=== PATIENT | male | born 1955 | race Caucasian/White ===

== ENCOUNTER 2018-07-25 09:07 | Emergency (ER) | payer MEDICAID ==
[~2018-07-25] VITALS: Ht 193 cm; Wt 113.4 kg
[2018-07-25 09:07] VITALS: BP_SYST 151
--- NOTE | 2018-07-25 09:09 | NUR ---
BROUGHT BACK TO BED #6 AND TRIAGED. REPORT GIVEN TO [facility]
--- NOTE | 2018-07-25 09:27 | NUR ---
Patient is awake, alert, and oriented x4. Patient is complaining of pain in right foot foot for a couple weeks. Patient presents with sharp throbbing pain 8/10 to right foot, limited range of motion, increased pain when pointing up.
--- NOTE | 2018-07-25 10:00 | NUR ---
ER Dr. Lezama at bedside examining patient.
[2018-07-25] MEDS ORDERED: traMADol HCL HCL 50 MG TABLET (ULTRAM) PO ONE (10:45)
[2018-07-25 11:15] VITALS: BP_SYST 139
--- NOTE | 2018-07-25 11:15 | NUR ---
Patient given written and verbal discharge instructions and verbalizes understanding. ER MD Lezama discussed with patient the results and treatment provided. Patient in stable condition. ID arm band removed. Rx of Tramadol given. Patient educated on pain management and to follow up with PMD. Pain Scale 0. Opportunity for questions provided and answered. Medication side effect fact sheet provided.
== END 2018-07-25 11:15 | disposition home or self-care (01) ==
LOC: SED 09:07
DX: S82.831A Other fracture of upper and lower end of right fibula, initial encounter for closed fracture (principal); R03.0 Elevated blood-pressure reading, without diagnosis of hypertension; X58.XXXA Exposure to other specified factors, initial encounter; Y93.89 Activity, other specified; Y92.89 Other specified places as the place of occurrence of the external cause; Y99.8 Other external cause status
CPT/HCPCS: 99283